=== PATIENT | female | born 1975 | race Caucasian/White ===

== ENCOUNTER 2017-08-11 00:32 | Emergency (ER) | payer OTHER ==
[~2017-08-11] VITALS: Ht 165.1 cm; Wt 45.4 kg
[~2017-08-11 00:32] MED LIST: ATARAX,VISTARIL50 MG PO; ATARAX25 MG PO; ATIVAN0.5 MG PO; AVPAK AZITHROM250 M1 PO; BACTRIM DS 8001 TA1 PO; CEPACOL SORE T1 EAC1 MM; CHLORDIAZEPOXID25 M1 PO; CIPRO500 MG PO; CIPROFLOXACIN500 MG PO; DARVOCET N 1001 TAB PO; DAYPRO600 M1 PO; DEPAKOTE500 M1 PO; DEPAKOTE500 MG PO; DUONEB 3 MG/3 ML3 M1 INH; EES400 MG PO; FIORICET 325 MG1 TAB PO; FLAGYL500 MG PO; FLEXERIL10 MG PO; FOLIC ACID0.4 MG PO; GEODON60 MG PO; IMODIUM MULTI-S1 TAB PO; K-LOR 20MEQ20 ME1 PO; KEFLEX250 MG PO; KEFLEX500 MG PO; LIBRIUM25 MG PO; MEDROL DOSEPAK4 MG PO; MELATONIN5 M6 PO; MELATONIN5 M7 PO; MOBIC15 MG PO; MORPHINE SULF2 MG/M1 IV; MOTRIN800 MG PO; NATURE'S BLEND F1 MG PO; NICOTINE T21 MG/24 H T; NOVAPLUS LORA2 MG/ML IV; Nicotrol 10MG I1 BOX INH; OMEPRAZOLE D/R20 MG PO; ONDANSETRON H2 MG/ML IV; ONDANSETRON HYDR4 M1 PO; ONDANSETRON HYDR4 MG PO; OYSTER SHELL CA1 T23 PO; PHOS-NAK1 PDR PO; PREDNICOT20 MG PO; PREDNISONE50 MG PO; PROTONIX40 M1 IV; PROVENTIL0.09 MG/A1 INH; ROBAXIN750 MG PO; SEROQUEL400 MG PO; THERA1 TAB PO; TRAMADOL HCL50 MG PO; TRAMADOL50 MG PO; TYLENOL325 M1 PO; VALIUM5 MG PO; VIBRAMYCIN100 MG PO; VICODIN 5/500 505 MG PO; VITAMIN B-11 TAB PO; VITAMIN B-650 M1 PO; VITAMIN B121000 MC1 PO; ZANTAC150 MG PO; ZOFRAN4 MG PO
[2017-08-11 00:39] VITALS: BP 156/113
== END 2017-08-11 00:59 | disposition home or self-care (01) ==
LOC: ED 00:32
DX: S50.862A Insect bite (nonvenomous) of left forearm, initial encounter (principal); Z88.2 Allergy status to sulfonamides; Z88.0 Allergy status to penicillin; Z88.1 Allergy status to other antibiotic agents; F17.200 Nicotine dependence, unspecified, uncomplicated; W57.XXXA Bitten or stung by nonvenomous insect and other nonvenomous arthropods, initial encounter; Y93.9 Activity, unspecified; Y92.9 Unspecified place or not applicable; Y99.9 Unspecified external cause status

== ENCOUNTER 2017-09-05 17:13 | Inpatient (IN) | payer OTHER ==
[~2017-09-05] VITALS: Ht 170.2 cm; Wt 35.9 kg
[2017-09-05 17:37] VITALS: BP 140/88
[2017-09-05 18:09] LABS: BILIRUBIN 1+ (NEGATIVE); BLOOD NEGATIVE (NEGATIVE); CLARITY SL CLOUDY (CLEAR); COLOR YELLOW (YELLOW); GLUCOSE NEGATIVE (NEGATIVE); KETONE TRACE (NEGATIVE); LEUKO ESTERASE NEGATIVE (NEGATIVE); NITRITE NEGATIVE (NEGATIVE); SPECIFIC GRAVITY 1.015 (1.005-1.030)
[2017-09-05 18:17] LABS: BACTERIA TRACE; RBC 0-2 rbc/hpf (0-2)
[2017-09-05 18:22] LABS: BASO # 0.1 10*3/uL (0.0-0.1); BASO % 2.3 % (0.0-1.0); HEMATOCRIT 35.8 % (37.0-47.0); LYMPH # 1.4 10*3/uL (1.3-4.4); LYMPH % 35.6 % (27.0-41.0); MEAN CELL VOLUME 104.4 fl (81.0-99.0); MEAN CORPUSCULAR HGB 37.9 pg (27.0-31.0); MEAN CORPUSCULAR HGB CONC 36.3 g/dl (33.0-37.0); MEAN PLATELET VOLUME 9.7 fl (9.6-12.3); MONO # 0.3 10*3/uL (0.1-1.0); MONO % 8.3 % (3.0-9.0); NEUT # 2.1 10*3/uL (2.3-7.9); NEUT % 53.3 % (47.0-73.0); PLATELET COUNT AUTOMATED 91 10*3/uL (130-400); RED BLOOD COUNT 3.43 10*6/uL (4.10-5.10); RED CELL DISTRI WIDTH 13.4 % (0-14.5); WHITE BLOOD COUNT 3.9 10*3/uL (4.8-10.8)
[2017-09-05 18:25] LABS: URINE AMPHETAMINES < 1000 (1000ng/ml); URINE BARBITURATES < 200 (200ng/ml); URINE BENZODIAZEPINES < 200 (200ng/ml); URINE CANNABINOIDS (THC) < 50 (50ng/ml); URINE COCAINE < 300 (300ng/ml); URINE METHADONE < 300 (300ng/ml); URINE OPIATES < 300 (300ng/ml)
[2017-09-05 18:31] LABS: URINE PHENCYCLIDINE < 25 (25ng/ml)
[2017-09-05 18:43] LABS: ACETAMINOPHEN (TYLENOL) 2.2 ug/ml (10-30); ALBUMIN 3.8 gm/dl (3.1-4.5); ALKALINE PHOSPHATASE 134 U/L (45-117); BUN 6 mg/dl (7-24); CHLORIDE 103 mmol/L (98-107); CREATININE 0.82 mg/dL (0.55-1.02); SGOT/AST 181 IU/L (3-35); SGPT/ALT 39 U/L (12-78); SODIUM 140 mmol/L (136-145); TOTAL PROTEIN 7.2 gm/dL (6.4-8.2)
[2017-09-05 19:15] VITALS: BP 136/98
--- NOTE | 2017-09-05 19:15 | NUR ---
A 41YR old female, admitted to ICCU, under the services of NORMA Bains DO with a diagnosis of . Chief complaint is "wants help for drinking" Patient arrived via stretcher from ER. Monitor applied. Initial assessment completed. Vital signs taken and recorded. See assessment for past medical history, medications and allergies. Patient and/or family oriented to unit. [facility] ICCU visitation policy reviewed. Rapid speech, seems to be answering appropriately. Exaggerated movements. Banana bag infusing on arrival. NAE JHA L
--- NOTE | 2017-09-05 19:50 | NUR ---
MEDICATED WITH IV ATIVAN ORDERED FOR NOTED AGITATION AND RESTLESSNESS.
--- NOTE | 2017-09-05 20:54 | NUR ---
MEDICATED WITH TOPICAL NICOTINE PATCH ORDERED PER PT REQUEST FOR C/O HX NICOTINE USE.
--- NOTE | 2017-09-05 20:55 | NUR ---
MEDICATED WITH IV ATIVAN ORDERED FOR CONTINUED RESTLESSNESS, PREVIOUS DOSE NOT EFFECTIVE. MEDICATED WITH PO RESTORIL ORDERED PER PT REQUEST FOR C/O INSOMNIA.
[2017-09-05 21:13] LABS: LIPASE 244 U/L (73-393)
[2017-09-05 21:16] LABS: BETA-HCG, QUANT < 1.0 mIU/mL (1-3)
[2017-09-06] VITALS: BP 103/76
--- NOTE | 2017-09-06 00:30 | NUR ---
MEDICATIONS EFFECTIVE.
--- NOTE | 2017-09-06 03:32 | NUR ---
MEDICATED WITH IV ATIVAN ORDERED PER PT REQUEST FOR C/O TREMORS.
[2017-09-06 04:00] VITALS: BP 100/73
--- NOTE | 2017-09-06 04:17 | NUR ---
MEDICATED WITH PO RESTORIL ORDERED PER PT REQUEST FOR JOAQUINA DIARRHEA.
[2017-09-06 04:49] LABS: HEMATOCRIT 33.3 % (37.0-47.0); HEMOGLOBIN 11.7 g/dl (12.0-16.0); MEAN CELL VOLUME 108.5 fl (81.0-99.0); MEAN CORPUSCULAR HGB 38.1 pg (27.0-31.0); MEAN CORPUSCULAR HGB CONC 35.1 g/dl (33.0-37.0); MEAN PLATELET VOLUME 10.5 fl (9.6-12.3); PLATELET COUNT AUTOMATED 69 10*3/uL (130-400); RED BLOOD COUNT 3.07 10*6/uL (4.10-5.10); RED CELL DISTRI WIDTH 13.9 % (0-14.5); WHITE BLOOD COUNT 2.9 10*3/uL (4.8-10.8)
--- NOTE | 2017-09-06 04:50 | NUR ---
MEDICATED WITH IV ATIVAN ORDERED PER PT REQUEST FOR C/O TREMORS.
[2017-09-06 04:51] LABS: ACT PARTIAL THROMBO TIME 30.4 SECONDS (20.8-31.5); INTERNATIONAL NORM RATIO 1.2 (2.0-3.5)
[2017-09-06 04:58] LABS: BASOPHILS 2 % (0-1); PLATELET SUFFICIENCY LOW (NORMAL); TOTAL CELLS COUNTED 100 #CELLS
[2017-09-06 05:13] LABS: ALBUMIN 3.1 gm/dl (3.1-4.5); ALKALINE PHOSPHATASE 121 U/L (45-117); BUN 5 mg/dl (7-24); CHLORIDE 106 mmol/L (98-107); CHOLESTEROL 147 mg/dL (<200); CREATININE 0.87 mg/dL (0.55-1.02); HDL CHOLESTEROL 93 mg/dl (40-60); LDL CHOLESTEROL 39 mg/dL (9-159); MAGNESIUM 1.2 mg/dL (1.5-2.1); PHOSPHOROUS 2.8 mg/dL (2.5-4.9); POTASSIUM 3.2 mmol/L (3.5-5.1); SGOT/AST 284 IU/L (3-35); SGPT/ALT 44 U/L (12-78); SODIUM 143 mmol/L (136-145); TRIGLYCERIDES 74 mg/dl (<150); VLDL CHOLESTEROL 15 mg/dL (6-40)
[2017-09-06 05:14] LABS: FREE T4 0.71 ng/dl (0.76-1.46)
--- NOTE | 2017-09-06 05:40 | NUR ---
MEDICATED WITH PO VISTARIL ORDERED PER PT REQUEST FOR C/O ANXIETY.
--- NOTE | 2017-09-06 06:11 | NUR ---
MEDICATED WITH IV ATIVAN ORDERED PER PT REQUEST FOR C/O AGITATION.
--- NOTE | 2017-09-06 07:20 | NUR ---
Shift chart check completed.
[2017-09-06 07:40] LABS: VITAMIN D, 25-HYDROXY 8.7 ng/mL (30-100)
[2017-09-06 08:00] VITALS: BP 122/84
--- NOTE | 2017-09-06 08:12 | NUR ---
Assessment done at bedside. IV KCL run infusing with Saline which eliminated the burning sensation from the potassium. Magnesium ready to go up. IV site asymptomatic. Patient resting quietly with no c/o upon assessment. No wounds seen. Dr Matthew Ko here and saw the patient. Case discussed, nutritional consult ordered, Ensure ordered.
--- NOTE | 2017-09-06 08:39 | NUR ---
ANSWERING SERVICE FOR DR HERNANDEZ CALLED IN TO SEE IF ANY NEW CONSULTS. TOLD OF CONSULT ON THSI PATIENT.
--- NOTE | 2017-09-06 10:53 | NUR ---
ROBAXIN GIVEN FOR MILD MUSCLE ACHES. REFUSING TO EAT. HEP LOCK SECURE & PATENT.
--- NOTE | 2017-09-06 11:20 | NUR ---
Sleeping - resp easy and nonlabored. VSS - Monitor Sinus 80.
--- NOTE | 2017-09-06 11:51 | NUR ---
PATIENT SLEEPING - RESP EASY AND NONLABORED ON ROOM AIR.
[2017-09-06 11:52] VITALS: BP 96/64
[2017-09-06 14:08] VITALS: BP 105/78
--- NOTE | 2017-09-06 14:08 | NUR ---
SLEEPING BUT AROUSES EASILY. MOVES ABOUT FROM SIDE TO SIDE. REFUSES TO EAT/DRINK. HEP LOCK SECURE
--- NOTE | 2017-09-06 16:05 | NUR ---
Patient displaying withdrawal symptoms when awoke by RN for assessment. Symptoms including: anxiousness and tremors. Patient scores a 4 on the withdrawal scale. Scheduled/PRN medications Ativan PO provided. Will continue to monitor medication effectiveness. Patient curled up under the blankets & went back to sleep as soon as the nurse walked away. Patient was encouraged to eat & ate 2 tiny bites from her muffin, encouraged to drink & drank 1/2 can khai-rivka, encouraged to get up to void but refused saying "I don't need to." Patient encouraged to order but refused other than willing to order a milk shake, RN ordered a Ensure milk shake. VSS. Hep lock secure & patent.
--- NOTE | 2017-09-06 16:40 | NUR ---
patient got up and voided. Gait unsteady - encouraged to use the call vidal.
--- NOTE | 2017-09-06 18:32 | NUR ---
Patient awakened by her mom.
--- NOTE | 2017-09-06 19:15 | NUR ---
Patient resting. Responding to scheduled medications with fewer complaints of pain and anxiety.
[2017-09-06 20:00] VITALS: BP 94/65
--- NOTE | 2017-09-06 21:54 | NUR ---
SCHEDULED ATIVAN GIVEN.
--- NOTE | 2017-09-06 21:59 | NUR ---
MEDICATED WITH PO ROBAXIN AND TOPICAL NICOTIN PATCH ORDERED PER PT REQUEST FOR C/O MUSCLE ACHES AND HX SMOKING.
[2017-09-07] VITALS: BP 98/72
--- NOTE | 2017-09-07 | NUR ---
Patient resting. Responding to scheduled medications with fewer complaints of pain and anxiety.
[2017-09-07 04:00] VITALS: BP 93/63
[2017-09-07 05:00] LABS: HEMATOCRIT 33.6 % (37.0-47.0); HEMOGLOBIN 11.7 g/dl (12.0-16.0); MEAN CELL VOLUME 109.8 fl (81.0-99.0); MEAN CORPUSCULAR HGB 38.2 pg (27.0-31.0); MEAN CORPUSCULAR HGB CONC 34.8 g/dl (33.0-37.0); MEAN PLATELET VOLUME 10.3 fl (9.6-12.3); PLATELET COUNT AUTOMATED 53 10*3/uL (130-400); RED BLOOD COUNT 3.06 10*6/uL (4.10-5.10); RED CELL DISTRI WIDTH 13.8 % (0-14.5); WHITE BLOOD COUNT 2.7 10*3/uL (4.8-10.8)
[2017-09-07 05:18] LABS: ALBUMIN 3.1 gm/dl (3.1-4.5); ALKALINE PHOSPHATASE 123 U/L (45-117); BUN 4 mg/dl (7-24); CHLORIDE 105 mmol/L (98-107); CREATININE 0.73 mg/dL (0.55-1.02); MAGNESIUM 1.5 mg/dL (1.5-2.1); PHOSPHOROUS 2.4 mg/dL (2.5-4.9); POTASSIUM 3.8 mmol/L (3.5-5.1); SGOT/AST 177 IU/L (3-35); SGPT/ALT 37 U/L (12-78); SODIUM 141 mmol/L (136-145); TOTAL PROTEIN 5.9 gm/dL (6.4-8.2)
[2017-09-07 05:23] LABS: ATYPICAL LYMPHS 4 % (0-0); BASOPHILS 2 % (0-1); PLATELET SUFFICIENCY LOW (NORMAL); TOTAL CELLS COUNTED 100 #CELLS
--- NOTE | 2017-09-07 06:37 | NUR ---
MEDICATED WITH PO ROBAXIN ORDERED PER PT REQUEST FOR C/O MUSCLE ACHES.
--- NOTE | 2017-09-07 06:51 | NUR ---
Shift chart check completed.
[2017-09-07 08:00] VITALS: BP 91/60
--- NOTE | 2017-09-07 09:05 | NUR ---
PATIENT SLEEPING BUT EASILY AROUSED. VSS. EARLIER ROBAXIN EFFECTIVE - NOT WANTING BREAKFAST AT THSI TIME - PATIENT IS DRINKING OFF & ON SIPS OF WATER
--- NOTE | 2017-09-07 09:38 | NUR ---
PATIENT TOOK PILLS WITHOUT DIFFICULTY. STILL NOT WANTING TO EAT. DRANK SOME BOOST.
--- NOTE | 2017-09-07 11:30 | NUR ---
MRSA NARES OBTAINED PER ORDERS
--- NOTE | 2017-09-07 11:32 | NUR ---
PER THE PATIENT'S SON HE IS GOING OUT OF TOWN FOR THE WEEK AND WILL BE UNABLE TO GET HER TO GET HER MEDICATIONS ON DISCHARGE SO ASKED IF [facility] SHE WILL BE ABLE TO GET THERE TO GET THEM.
[2017-09-07 12:00] VITALS: BP 93/58
--- NOTE | 2017-09-07 12:00 | NUR ---
PATIENT ASSISTED UP TO THE BEDSIDE COMMODE D/T MILD TREMORS & WEAKNESS. HR WENT FROM MID 70'S AT REST TO 112 WHILE UP THE BACK TO LOW 80'S WHEN RESTING.
--- NOTE | 2017-09-07 14:18 | NUR ---
PATIENT MEDICATED WITH ROBAXIN FOR C/O "NOT FEELING WELL." SILL REFUSING TO EAT. TAKING LIQUIDS WITHOUT DIFFICULTY.
--- NOTE | 2017-09-07 14:45 | NUR ---
TURNED ON SIDE CURLED UP IN HER BLANKETS WITH EYES CLOSED. NO VISIBLE TREMORS. HR MID 70 - LOW 80 AT REST BUT LOW 100'S WITH ACTIVITY.
--- NOTE | 2017-09-07 17:03 | NUR ---
MOM HERE AND PATIENT FINALLY WANTS TO EAT. DINNER ORDERED.
--- NOTE | 2017-09-07 19:13 | NUR ---
PATIENT REFUSED MULTIPLE TIMES TODAY TO GET WASHED UP SAYING "I DON'T FEEL GOOD, LET ME SLEEP"
--- NOTE | 2017-09-07 19:48 | NUR ---
DR AHMADI NOTIFIED OF SBP IN THE 80s. NEW ORDERS RECEIVED.
[2017-09-07 20:00] VITALS: BP 119/84
--- NOTE | 2017-09-07 22:48 | NUR ---
MEDICATED WITH PO ROBAXIN ORDERED PER PT REQUEST FOR C/O MUSCLE ACHES/CRAMPING.
[2017-09-08] VITALS: BP 115/74
--- NOTE | 2017-09-08 00:05 | NUR ---
MEDICATED WITH IV ATIVAN ORDERED PER PT REQUEST FOR C/O ANXIETY/TREMORS.
--- NOTE | 2017-09-08 00:13 | NUR ---
MEDICATED WITH PO BENTYL ORDERED PER PT REQUEST FOR C/O STOMACH CRAMPING.
--- NOTE | 2017-09-08 01:15 | NUR ---
Patient resting. Responding to scheduled medications with fewer complaints of pain and anxiety. PT REQUESTING TO EAT AND PROVIDED FOOD AND DRINK.
[2017-09-08 04:00] VITALS: BP 91/57
--- NOTE | 2017-09-08 04:17 | NUR ---
MEDICATED WITH IV ATIVAN ORDERED FOR INCREASED AGITATION. PT IS UP, UNSTEADY AND GATHERING HER BELONGINGS W/ C/O "SHAKING AND CAN'T SLEEP". RN HELPED PT TO PUT PANTS ON AND ENCOURAGED HER TO RETURN TO BED FOR NOW, AND TO LET ASSESS HER IN THE AM.
[2017-09-08 04:22] LABS: HEMOGLOBIN 10.8 g/dl (12.0-16.0); MEAN CELL VOLUME 109.5 fl (81.0-99.0); MEAN CORPUSCULAR HGB 38.2 pg (27.0-31.0); MEAN CORPUSCULAR HGB CONC 34.8 g/dl (33.0-37.0); MEAN PLATELET VOLUME 10.9 fl (9.6-12.3); PLATELET COUNT AUTOMATED 48 10*3/uL (130-400); RED BLOOD COUNT 2.83 10*6/uL (4.10-5.10); RED CELL DISTRI WIDTH 13.6 % (0-14.5)
[2017-09-08 04:46] LABS: BUN 7 mg/dl (7-24); CHLORIDE 106 mmol/L (98-107); CREATININE 0.69 mg/dL (0.55-1.02); MAGNESIUM 1.3 mg/dL (1.5-2.1); PHOSPHOROUS 3.9 mg/dL (2.5-4.9); POTASSIUM 4.4 mmol/L (3.5-5.1); SODIUM 141 mmol/L (136-145)
[2017-09-08 04:57] LABS: BASOPHILS 1 % (0-1); PLATELET SUFFICIENCY LOW (NORMAL); TOTAL CELLS COUNTED 100 #CELLS
--- NOTE | 2017-09-08 05:17 | NUR ---
24 HR chart check completed.
--- NOTE | 2017-09-08 05:32 | NUR ---
MEDICATED WITH PO ROBAXIN ORDERED PER PT REQUEST FOR C/O MUSCLE CRAMPS.
--- NOTE | 2017-09-08 05:39 | NUR ---
0400 PO ATIVAN RECENTLY GIVEN IV DOSE WAS NOT EFFECTIVE AND PT IS VERY RESTLESS.
--- NOTE | 2017-09-08 06:01 | NUR ---
DR AHMADI AND GARMENT SEWING MACHINE OPERATOR AWARE OF PT GOING AMA. PT IS VERY INSISTANT IN LEAVING.
== END 2017-09-08 06:01 | disposition left against medical advice (07) | DRG 894 ==
LOC: ED 17:13 → EDHOLD 18:53 → ICCU 19:05
PROVIDERS: Internal Medicine; Student in an Organized Health Care Education/Training Program; ADMIT Emergency Medicine
DX: F10.231 Alcohol dependence with withdrawal delirium (principal); R64 Cachexia; D69.6 Thrombocytopenia, unspecified; Z93.0 Tracheostomy status; K76.0 Fatty (change of) liver, not elsewhere classified; E83.51 Hypocalcemia; Z68.1 Body mass index [BMI] 19.9 or less, adult; E87.6 Hypokalemia; D72.819 Decreased white blood cell count, unspecified; R74.0 Nonspecific elevation of levels of transaminase and lactic acid dehydrogenase [LDH]; F90.9 Attention-deficit hyperactivity disorder, unspecified type; R94.31 Abnormal electrocardiogram [ECG] [EKG]; R80.9 Proteinuria, unspecified; R00.0 Tachycardia, unspecified; F17.200 Nicotine dependence, unspecified, uncomplicated; F19.10 Other psychoactive substance abuse, uncomplicated; R63.6 Underweight; R63.0 Anorexia; Z53.21 Procedure and treatment not carried out due to patient leaving prior to being seen by health care provider; Z90.49 Acquired absence of other specified parts of digestive tract; Z90.721 Acquired absence of ovaries, unilateral; Z71.6 Tobacco abuse counseling; Z88.2 Allergy status to sulfonamides; Z88.0 Allergy status to penicillin; Z88.1 Allergy status to other antibiotic agents; Z79.51 Long term (current) use of inhaled steroids

== ENCOUNTER 2017-10-15 12:47 | Inpatient (IN) | payer OTHER ==
[~2017-10-15] VITALS: Ht 170.1 cm; Wt 38.6 kg
[2017-10-15 13:09] VITALS: BP 130/74
[2017-10-15 13:29] LABS: HEMATOCRIT 35.5 % (37.0-47.0); HEMOGLOBIN 12.2 g/dl (12.0-16.0); MEAN CELL VOLUME 109.2 fl (81.0-99.0); MEAN CORPUSCULAR HGB 37.5 pg (27.0-31.0); MEAN CORPUSCULAR HGB CONC 34.4 g/dl (33.0-37.0); MEAN PLATELET VOLUME 9.7 fl (9.6-12.3); PLATELET COUNT AUTOMATED 82 10*3/uL (130-400); RED BLOOD COUNT 3.25 10*6/uL (4.10-5.10); RED CELL DISTRI WIDTH 14.2 % (0-14.5)
[2017-10-15 13:39] LABS: ACT PARTIAL THROMBO TIME 30.2 SECONDS (20.8-31.5); INTERNATIONAL NORM RATIO 1.1 (2.0-3.5)
[2017-10-15 13:45] LABS: ALBUMIN 4.2 gm/dl (3.1-4.5); ALKALINE PHOSPHATASE 128 U/L (45-117); BUN 7 mg/dl (7-24); CHLORIDE 106 mmol/L (98-107); POTASSIUM 3.1 mmol/L (3.5-5.1); SGOT/AST 211 IU/L (3-35); SGPT/ALT 49 U/L (12-78); SODIUM 146 mmol/L (136-145); TOTAL PROTEIN 7.7 gm/dL (6.4-8.2)
[2017-10-15 13:48] LABS: BASOPHILS 3 % (0-1); TOTAL CELLS COUNTED 100 #CELLS
[2017-10-15 13:50] LABS: BILIRUBIN NEGATIVE (NEGATIVE); BLOOD TRACE-INTACT (NEGATIVE); CLARITY CLOUDY (CLEAR); COLOR YELLOW (YELLOW); GLUCOSE NEGATIVE (NEGATIVE); KETONE NEGATIVE (NEGATIVE); LEUKO ESTERASE NEGATIVE (NEGATIVE); NITRITE NEGATIVE (NEGATIVE); SPECIFIC GRAVITY 1.015 (1.005-1.030)
[2017-10-15 13:50] LABS: PLATELET SUFFICIENCY LOW (NORMAL)
[2017-10-15 13:51] LABS: ACETAMINOPHEN (TYLENOL) < 2.0 ug/ml (10-30); TROPONIN I < 0.015 ng/ml (<0.045)
[2017-10-15 14:02] LABS: BACTERIA 2+; FINE GRANULAR CAST 0-2
[2017-10-15 14:06] LABS: URINE AMPHETAMINES < 1000 (1000ng/ml); URINE BARBITURATES < 200 (200ng/ml); URINE BENZODIAZEPINES < 200 (200ng/ml); URINE CANNABINOIDS (THC) < 50 (50ng/ml); URINE COCAINE < 300 (300ng/ml); URINE METHADONE < 300 (300ng/ml); URINE OPIATES < 300 (300ng/ml)
[2017-10-15 14:09] LABS: URINE PHENCYCLIDINE < 25 (25ng/ml)
[2017-10-15 14:40] VITALS: BP 129/96
[2017-10-15 15:10] VITALS: BP 115/74
--- NOTE | 2017-10-15 15:10 | NUR ---
A 41, admitted to ICCU, under the services of CHELITA Nichols DO with a diagnosis of NICOTINE DEPENDANCE,ALCOHOL WITHDRAWL, ELEVATED LFT'S, HYPOKALEMIA. Chief complaint is NAUSEA, ABD PAIN RANGEL, SHAKES. Patient arrived via stretcher from ER. Monitor applied. Initial assessment completed. Vital signs taken and recorded. CHELITA NICHOLS DO notified of admission to the unit. Orders received. See assessment for past medical history, medications and allergies. Patient and/or family oriented to unit. [facility] ICCU visitation policy reviewed. Clothing/patient valuable form completed. RAMIREZ
[2017-10-15 16:00] VITALS: BP 91/57
[2017-10-15 20:00] VITALS: BP 106/78
--- NOTE | 2017-10-15 20:12 | NUR ---
PT. RESTING IN BED, SLEEPING INTERMITTENTLY. HEP LOCK IN RA ASYMPT. LUNGS CLEAR BILAT, PULSE OX 96% ON RA. ABDOMEN SOFT, NONDISTENDED AND NORMO. NO PERIPHERAL EDEMA NOTED. TREMORS NOTED. PT. REMAINS ALERT AND ORIENTED. KATHRIN HOLT RN
--- NOTE | 2017-10-15 21:43 | NUR ---
PT. GIVEN BENTYL, ROBAXIN, DESYREL, AND VISTARIL ORDERED FOR MUSCLE CRAMPS, INSOMNIA AND ANXIETY AT 2139.
--- NOTE | 2017-10-15 22:22 | NUR ---
PT. SLEEPING, BENTYL, DESYREL, ROBAXIN AND VISTARIL EFFECTIVE. KATHRIN HOLT RN
[2017-10-16] VITALS: BP 91/51
[2017-10-16 04:00] VITALS: BP 106/66
[2017-10-16 04:35] LABS: MEAN CELL VOLUME 110.8 fl (81.0-99.0); MEAN CORPUSCULAR HGB 37.2 pg (27.0-31.0); MEAN CORPUSCULAR HGB CONC 33.6 g/dl (33.0-37.0); MEAN PLATELET VOLUME 9.6 fl (9.6-12.3); WHITE BLOOD COUNT 2.2 10*3/uL (4.8-10.8)
[2017-10-16 04:36] LABS: HEMATOCRIT 27.7 % (37.0-47.0); HEMOGLOBIN 9.3 g/dl (12.0-16.0); PLATELET COUNT AUTOMATED 54 10*3/uL (130-400)
[2017-10-16 04:53] LABS: ATYPICAL LYMPHS 1 % (0-0); BASOPHILS 4 % (0-1); PLATELET SUFFICIENCY LOW (NORMAL); TOTAL CELLS COUNTED 100 #CELLS
[2017-10-16 04:55] LABS: ALKALINE PHOSPHATASE 97 U/L (45-117); BUN 6 mg/dl (7-24); CHLORIDE 105 mmol/L (98-107); CHOLESTEROL 190 mg/dL (<200); CREATININE 0.78 mg/dL (0.55-1.02); HDL CHOLESTEROL 132 mg/dl (40-60); LDL CHOLESTEROL 46 mg/dL (9-159); PHOSPHOROUS 2.9 mg/dL (2.5-4.9); POTASSIUM 3.2 mmol/L (3.5-5.1); SGOT/AST 183 IU/L (3-35); SGPT/ALT 37 U/L (12-78); SODIUM 144 mmol/L (136-145); TOTAL PROTEIN 5.7 gm/dL (6.4-8.2); TRIGLYCERIDES 58 mg/dl (<150); VLDL CHOLESTEROL 12 mg/dL (6-40)
[2017-10-16 04:56] LABS: FREE T4 0.66 ng/dl (0.76-1.46)
--- NOTE | 2017-10-16 05:05 | NUR ---
JACKIE OCAMPO AND RAFI NOTIFIED OF CALCIUM LEVEL OF 6.4. KATHRIN HOLT RN
[2017-10-16 07:56] VITALS: BP 108/73
--- NOTE | 2017-10-16 10:00 | NUR ---
PT MEDICATED WITH VISTARIL 50MG PO AT HER REQUEST FOR ANXIETY.
--- NOTE | 2017-10-16 11:40 | NUR ---
PT TRANSFERED TO ROOM 412 VIA WHEELCHAIR AT THIS TIME REPORT GIVEN TO WILFRID LOFTON.
--- NOTE | 2017-10-16 15:26 | NUR ---
PATIENT DECIDED TO LEAVE AGAINST MEDICAL ADVICE DESPITE BEING TOLD THAT THE DOCTOR IS NOT DISCHARGING HER AND DOES NOT RECOMMEND HER LEAVING. 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 SHE SIGNED THE AMA FORM WILLINGLY, THE IV LINE WAS REMOVED, AND SHE AMBULATED FROM THE FLOOR ON FOOT. PATIENT SEEMED AGITATED AND CONFUSED, WELL A BIT UNSTEADY.
== END 2017-10-16 15:00 | disposition left against medical advice (07) | DRG 894 ==
LOC: ED 12:47 → ICCU 14:01 → EDHOLD 14:01 → ICCU 14:15 → 4E 10-16 11:08
PROVIDERS: Nurse Practitioner Family; Registered Nurse; ADMIT Internal Medicine
DX: F10.239 Alcohol dependence with withdrawal, unspecified (principal); E43 Unspecified severe protein-calorie malnutrition; G93.41 Metabolic encephalopathy; D61.818 Other pancytopenia; R64 Cachexia; Z68.1 Body mass index [BMI] 19.9 or less, adult; E87.6 Hypokalemia; F17.219 Nicotine dependence, cigarettes, with unspecified nicotine-induced disorders; E83.42 Hypomagnesemia; Z53.21 Procedure and treatment not carried out due to patient leaving prior to being seen by health care provider; F19.90 Other psychoactive substance use, unspecified, uncomplicated; F31.9 Bipolar disorder, unspecified; Z90.49 Acquired absence of other specified parts of digestive tract; Z90.721 Acquired absence of ovaries, unilateral; Z80.9 Family history of malignant neoplasm, unspecified; Z88.0 Allergy status to penicillin; Z88.2 Allergy status to sulfonamides; Z88.1 Allergy status to other antibiotic agents; Z79.51 Long term (current) use of inhaled steroids

== ENCOUNTER 2018-03-28 17:30 | Emergency (ER) | payer OTHER ==
[~2018-03-28] VITALS: Ht 162.5 cm; Wt 49.9 kg
[2018-03-28 17:32] VITALS: BP 133/90
[2018-03-29] MEDS ORDERED: ZITHROMAX250 MG PO (05:12)
== END 2018-03-28 17:46 | disposition left against medical advice (07) ==
LOC: ED 17:30
DX: R05 Cough (principal); J02.9 Acute pharyngitis, unspecified; R50.9 Fever, unspecified; Z90.49 Acquired absence of other specified parts of digestive tract; Z98.890 Other specified postprocedural states; Z88.0 Allergy status to penicillin; Z88.2 Allergy status to sulfonamides; Z88.1 Allergy status to other antibiotic agents; Z53.21 Procedure and treatment not carried out due to patient leaving prior to being seen by health care provider

== ENCOUNTER 2018-03-29 03:01 | Emergency (ER) | payer OTHER ==
[~2018-03-29] VITALS: Ht 160 cm; Wt 45.4 kg
[2018-03-29 03:06] VITALS: BP 141/107
[2018-03-29] MEDS ORDERED: ZITHROMAX250 MG PO (05:12)
== END 2018-03-29 05:20 | disposition left against medical advice (07) ==
LOC: ED 03:01
DX: J02.9 Acute pharyngitis, unspecified (principal); R11.10 Vomiting, unspecified; F17.200 Nicotine dependence, unspecified, uncomplicated; Z90.49 Acquired absence of other specified parts of digestive tract; Z98.890 Other specified postprocedural states; Z88.0 Allergy status to penicillin; Z88.2 Allergy status to sulfonamides; Z88.1 Allergy status to other antibiotic agents

== ENCOUNTER 2018-06-11 20:38 | Emergency (ER) | payer OTHER ==
[~2018-06-11] VITALS: Wt 49.9 kg
--- NOTE | ~2018-06-11 | EKG ---
[place], [place] ELECTROCARDIOGRAM REPORT NAME: CARO LUTZ UNIT #: [id number] ROOM: DOCTOR: EPIPHANY DRAFT REPORT BIRTHDATE: [birth year] [facility] Test Date: 2018-06-11 Test Time: 21:11:04 Pat Name: CARO LUTZ Department: Room: Gender: F Waitstaff Captain: SS RESP : 1975 Requested By: ADAMS MATT PA-C Order Number: [id number] Reading MD: Arturo Patel MD Measurements Intervals [place] Rate: 95 P: 74 [place]: 156 QRS: 40 QRSD: 98 T: 27 QT: 373 QTc: 469 Interpretive Statements Sinus rhythm Probable left atrial enlargement Nonspecific T abnrm, anterolateral leads Electronically Signed On 06-12-2018 11:13:42 PDT by Arturo Patel MD CM:EKGRPT:ELECTROCARDIOGRAM REPORT [id number] ADAMS MATT PA-C EPIPHANY DRAFT REPORT ADAMS MATT PA-C
[~2018-06-11 20:38] MED LIST changes: +ZITHROMAX250 MG PO
[2018-06-11 21:17] VITALS: BP 111/92
[2018-06-11 21:18] LABS: BILIRUBIN NEGATIVE (NEGATIVE); BLOOD NEGATIVE (NEGATIVE); CLARITY CLEAR (CLEAR); COLOR YELLOW (YELLOW); GLUCOSE NEGATIVE (NEGATIVE); KETONE TRACE (NEGATIVE); LEUKO ESTERASE NEGATIVE (NEGATIVE); NITRITE NEGATIVE (NEGATIVE); PH 6.5 (5.0-9.0)
[2018-06-11 21:22] LABS: BASO # 0.1 10*3/uL (0.0-0.1); BASO % 0.8 % (0.0-1.0); HEMOGLOBIN 13.7 g/dl (12.0-16.0); LYMPH # 1.7 10*3/uL (1.3-4.4); LYMPH % 27.9 % (27.0-41.0); MEAN CELL VOLUME 103.9 fl (81.0-99.0); MEAN CORPUSCULAR HGB 35.6 pg (27.0-31.0); MEAN CORPUSCULAR HGB CONC 34.3 g/dl (33.0-37.0); MEAN PLATELET VOLUME 9.2 fl (9.6-12.3); MONO # 0.4 10*3/uL (0.1-1.0); MONO % 5.7 % (3.0-9.0); NEUT % 65.4 % (47.0-73.0); PLATELET COUNT AUTOMATED 115 10*3/uL (130-400); RED BLOOD COUNT 3.85 10*6/uL (4.10-5.10); RED CELL DISTRI WIDTH 15.1 % (0-14.5); WHITE BLOOD COUNT 6.1 10*3/uL (4.8-10.8)
[2018-06-11 21:25] LABS: URINE AMPHETAMINES < 1000 (1000ng/ml); URINE BARBITURATES < 200 (200ng/ml); URINE BENZODIAZEPINES < 200 (200ng/ml); URINE CANNABINOIDS (THC) < 50 (50ng/ml); URINE COCAINE > 300 (300ng/ml); URINE METHADONE < 300 (300ng/ml); URINE OPIATES < 300 (300ng/ml)
[2018-06-11 21:28] LABS: URINE PHENCYCLIDINE < 25 (25ng/ml)
[2018-06-11 21:37] LABS: ALBUMIN 4.4 gm/dl (3.1-4.5); ALKALINE PHOSPHATASE 120 U/L (45-117); BUN 6 mg/dl (7-24); CHLORIDE 103 mmol/L (98-107); CREATININE 0.84 mg/dL (0.55-1.02); POTASSIUM 3.2 mmol/L (3.5-5.1); SGOT/AST 99 IU/L (3-35); SGPT/ALT 30 U/L (12-78); SODIUM 140 mmol/L (136-145); TOTAL PROTEIN 7.9 gm/dL (6.4-8.2)
[2018-06-11 21:40] LABS: B-hCG (QUALITATIVE) NEGATIVE (NEGATIVE)
[2018-06-11 21:47] LABS: ACETAMINOPHEN (TYLENOL) < 2.0 ug/ml (10-30)
== END 2018-06-12 00:18 | disposition home or self-care (01) ==
LOC: ED 20:38
PROVIDERS: Physician Assistant
DX: F10.129 Alcohol abuse with intoxication, unspecified (principal); F19.10 Other psychoactive substance abuse, uncomplicated; J02.9 Acute pharyngitis, unspecified; R42 Dizziness and giddiness; F17.200 Nicotine dependence, unspecified, uncomplicated; Z88.0 Allergy status to penicillin; Z88.2 Allergy status to sulfonamides; Z88.1 Allergy status to other antibiotic agents; Y90.9 Presence of alcohol in blood, level not specified

== ENCOUNTER → 2018-10-19 | Outpatient (CLI) | payer OTHER ==
[~2018-10-19] MED LIST changes: +Tobrex Ophth S2.5 ML OPH
[2018-10-19 15:52] LABS: BASO # 0.1 10*3/uL (0.0-0.1); BASO % 0.7 % (0.0-1.0); EOS % 0.4 % (1.0-4.0); HEMOGLOBIN 11.6 g/dl (12.0-16.0); MEAN CELL VOLUME 103.6 fl (81.0-99.0); MEAN CORPUSCULAR HGB 34.3 pg (27.0-31.0); MEAN CORPUSCULAR HGB CONC 33.1 g/dl (33.0-37.0); MEAN PLATELET VOLUME 10.3 fl (9.6-12.3); MONO # 0.6 10*3/uL (0.1-1.0); MONO % 5.9 % (3.0-9.0); NEUT # 6.9 10*3/uL (2.3-7.9); NEUT % 71.6 % (47.0-73.0); PLATELET COUNT AUTOMATED 228 10*3/uL (130-400); RED BLOOD COUNT 3.38 10*6/uL (4.10-5.10); RED CELL DISTRI WIDTH 11.9 % (0-14.5); WHITE BLOOD COUNT 9.7 10*3/uL (4.8-10.8)
[2018-10-19 16:17] LABS: BUN 6 mg/dl (7-24); CHLORIDE 108 mmol/L (98-107); CREATININE 0.66 mg/dL (0.55-1.02); POTASSIUM 4.2 mmol/L (3.5-5.1); SODIUM 138 mmol/L (136-145)
== END ==
LOC: LAB 14:45
DX: I42.8 Other cardiomyopathies (principal)

== ENCOUNTER → 2018-11-30 | Outpatient (CLI) | payer OTHER ==
[2018-11-30 16:21] LABS: IRON 121 ug/dL (50-170); TOTAL IRON BINDING CAPACITY 425 ug/dl (250-450)
[2018-11-30 17:15] LABS: FERRITIN 20.1 ng/mL (10.0-291.0)
== END | disposition home or self-care (01) ==
PROVIDERS: Internal Medicine
DX: D64.9 Anemia, unspecified (principal)

== ENCOUNTER → 2019-10-20 | Outpatient (CLI) | payer OTHER ==
[2019-10-20 12:04] LABS: CHOLESTEROL 211 mg/dL (<200); HDL CHOLESTEROL 44 mg/dl (40-60); LDL CHOLESTEROL 136 mg/dL (9-159); TRIGLYCERIDES 156 mg/dl (<150); VLDL CHOLESTEROL 31 mg/dL (6-40)
== END | disposition home or self-care (01) ==
LOC: LAB 11:18
PROVIDERS: Internal Medicine
DX: I42.8 Other cardiomyopathies (principal); R19.7 Diarrhea, unspecified

== ENCOUNTER → 2019-12-28 | Outpatient (CLI) | payer OTHER | END | disposition home or self-care (01) | LOC: MAMMO 14:30 | DX: Z12.31 Encounter for screening mammogram for malignant neoplasm of breast (principal) ==

== ENCOUNTER → 2020-12-30 | Outpatient (CLI) | payer OTHER | END | disposition home or self-care (01) | LOC: LAB 14:10 | PROVIDERS: ATTEND Internal Medicine Gastroenterology | DX: K92.1 Melena (principal) ==

== ENCOUNTER → 2021-02-22 | Outpatient (CLI) | payer OTHER ==
[2021-02-22 11:04] LABS: BUN 9 mg/dl (7-24); CHLORIDE 108 mmol/L (98-107); CHOLESTEROL 123 mg/dL (<200); CREATININE 0.84 mg/dL (0.55-1.02); HDL CHOLESTEROL 57 mg/dl (40-60); LDL CHOLESTEROL 42 mg/dL (9-159); POTASSIUM 3.7 mmol/L (3.5-5.1); SODIUM 141 mmol/L (136-145); TRIGLYCERIDES 121 mg/dl (<150); VLDL CHOLESTEROL 24 mg/dL (6-40)
== END | disposition home or self-care (01) ==
LOC: LAB 10:00
PROVIDERS: ATTEND Internal Medicine
DX: I42.8 Other cardiomyopathies (principal)

== ENCOUNTER → 2021-05-14 | Outpatient (CLI) | payer OTHER | END | disposition home or self-care (01) | LOC: MAMMO 10:50 | PROVIDERS: ATTEND Internal Medicine Nephrology | DX: Z12.31 Encounter for screening mammogram for malignant neoplasm of breast (principal) ==

== ENCOUNTER → 2021-11-15 | Outpatient (CLI) | payer OTHER | END | disposition home or self-care (01) | LOC: RAD 15:19 | PROVIDERS: ATTEND Internal Medicine Nephrology | DX: J20.9 Acute bronchitis, unspecified (principal) ==

== ENCOUNTER → 2021-12-07 | Outpatient (CLI) | payer OTHER | END | disposition home or self-care (01) | LOC: COVID19 16:26 | PROVIDERS: ATTEND Family Medicine | DX: U07.1 COVID-19 (principal) ==

== ENCOUNTER → 2022-05-16 | Outpatient (CLI) | payer OTHER | END | disposition home or self-care (01) | LOC: MAMMO 11:00 | PROVIDERS: ATTEND Internal Medicine | DX: Z12.31 Encounter for screening mammogram for malignant neoplasm of breast (principal) ==

== ENCOUNTER → 2025-01-25 | Outpatient (CLI) | payer OTHER | END | disposition home or self-care (01) | LOC: MAMMO 12-29 08:00 | PROVIDERS: ATTEND Internal Medicine | DX: Z12.31 Encounter for screening mammogram for malignant neoplasm of breast (principal); R92.333 Mammographic heterogeneous density, bilateral breasts ==